=== PATIENT | female | born 2000 | race Caucasian/White ===

== ENCOUNTER 2022-07-03 13:28 | Emergency (ER) | payer MEDICAID, OTHER ==
[~2022-07-03] VITALS: Ht 167.6 cm; Wt 66.0 kg
[2022-07-03 13:52] VITALS: BP 123/76
[2022-07-03] MEDS ORDERED: ACETAMINOPHEN 325 MG TAB PO ONE (14:15)
[2022-07-03] MEDS ORDERED: METH500T22 PO (14:41)
[2022-07-03] MEDS ORDERED: IBUP600T27 PO (14:41)
== END 2022-07-03 14:43 | disposition home or self-care (01) ==
LOC: ER 13:28
DX: S16.1XXA Strain of muscle, fascia and tendon at neck level, initial encounter (principal); S90.31XA Contusion of right foot, initial encounter; Z90.49 Acquired absence of other specified parts of digestive tract; Z79.1 Long term (current) use of non-steroidal anti-inflammatories (NSAID); Z79.899 Other long term (current) drug therapy; V43.52XA Car driver injured in collision with other type car in traffic accident, initial encounter; Y93.89 Activity, other specified; Y92.89 Other specified places as the place of occurrence of the external cause; Y99.8 Other external cause status
CPT/HCPCS: 72040; 73630